=== PATIENT | male | born 1970 | race Caucasian/White ===

== ENCOUNTER 2021-06-05 16:36 | Outpatient (CLI) | payer OTHER, SELFPAY ==
--- NOTE | ~2021-06-05 | XR_ITS ---
EXAMINATION: XR chest 2V DATE: 06/05/2021 18:49 INDICATION: Hoarseness and cough. TECHNIQUE: Frontal and lateral views of the chest were obtained. COMPARISON: Chest 2 views 02/22/2014, CT abdomen and pelvis 01/21/2010 FINDINGS: There is mild scarring at the lung apices. Calcified bilateral pulmonary nodules and calcif ied hilar lymph nodes are consistent with old granulomatous disease. No pleural effusion or pneumotho rax. The heart size is normal. There is mild chronic height loss of multiple thoracic vertebral christina s. IMPRESSION: 1. Stable mild scarring at the lung apices. Reviewed, dictated and finalized at location A.
== END 2021-06-05 16:37 | disposition home or self-care (01) ==
LOC: CHSIMG 16:40
PROVIDERS: PCP Internal Medicine; Visit Provider Internal Medicine
DX: R49.0 Dysphonia (principal); R05 Cough
CPT/HCPCS: 71046

== ENCOUNTER → 2021-07-09 03:14 | Outpatient (CLI) | payer OTHER, SELFPAY ==
[2021-07-09 19:14] LABS: SARS-CoV-2 RNA PCR Negative
== END ==
PROVIDERS: PCP Internal Medicine; Visit Provider Otolaryngology
DX: Z01.812 Encounter for preprocedural laboratory examination (principal); Z20.822 Contact with and (suspected) exposure to COVID-19
CPT/HCPCS: C9803; U0003; U0005

== ENCOUNTER 2021-07-09 08:53 | Outpatient (CLI) | payer OTHER, SELFPAY ==
--- NOTE | 2021-07-09 09:09 | ECG_ITS ---
Measurements Intervals [place] Rate: 77 P: 85 WV: 159 QRS: 80 QRSD: 91 T: 61 QT: 360 QTc: 409 Interpretive Statements SINUS RHYTHM POSSIBLE LEFT ATRIAL ENLARGEMENT PEAKED T WAVES- CONSIDER HYPERKALEMIA BASELINE ARTIFACT- I, III, AVL ABNORMAL ECG Electronically Signed On 07-09-2021 9:20:56 CDT by Kieran Nelson D.O.
== END 2021-07-09 08:54 | disposition home or self-care (01) ==
LOC: ANHSURGERY 08:58
PROVIDERS: PCP Internal Medicine; Visit Provider Otolaryngology
DX: Z01.810 Encounter for preprocedural cardiovascular examination (principal); F17.210 Nicotine dependence, cigarettes, uncomplicated
CPT/HCPCS: 93005

== ENCOUNTER 2021-07-12 01:08 | Day surgery (SDC) | payer OTHER, SELFPAY ==
[2021-07-08 16:43] VITALS: BMI 20.3
--- NOTE | 2021-07-10 16:39 | PM.IMHP ---
H&P: HPI History of Present Illness Date/Time: 07/10/21 16:39 Patient presents for planned surgical procedure no change in symptoms no change in history Chief Complaint: hoarse voice, left vocal cord lesion Review of Systems Constitutional: Constitutional: Denies fatigue, Denies fever(s) and Denies lethargy Eyes: Eyes: Denies blurry vision and Denies change in vision ENT: Reports as per HPI Cardiovascular: Cardiovascular: Denies chest pain Respiratory: Respiratory: Denies cough Endocrine: Endocrine: Denies fatigue Hematologic/Lymphatic: Hematologic/Lymphatic: Denies easy bleeding, Denies easy bruising and Denies lymphadenopathy Allergic/Immunologic: Allergic/Immunologic: Denies seasonal rhinorrhea [facility] Social History Social History Smoking packs per day: 1 Smoking cigarettes per day: 20.0 Years smoked: 30 Smoking pack-years: 30.00 Smoking status: Current every day smoker Tobacco type: cigarettes Second hand tobacco smoke exposure: Yes Alcohol intake: current Drinks per week: 14 Alcohol use details: 2 beers per day Substance use: never Substance use type: does not use Spiritual care concerns: No Meds Home Medications and Allergies Home Medications Medication Instructions Recorded Confirmed Type prednisolone acetate 1 % eye 1 drp LEFT EYE DAILY 06/19/21 07/08/21 History drops,suspension titaiufkjuxd-nxy-fkcn-FA-vit K 1 tablet PO DAILY 07/08/21 07/08/21 History [Adults Multivitamin] Allergies Allergy/AdvReac Type Severity Reaction Status Date / Time Penicillins Allergy Intermediate Hives Verified 07/08/21 16:39 Exam Const: General: cooperative, healthy appearing, comfortable, well developed and alert HENMT: Head: normal to inspection, normocephalic and atraumatic Ears: hearing grossly normal bilaterally, external ears normal, TM's normal bilaterally and EAC's normal General nose exam: Normal external nose present, Normal nares present, No nasal polyps present, Normal nasal mucous membranes and turbinates present and Normal septum present Face and sinus: normal facial exam Mouth: Yes Normal oral and palatal mucosa present, Yes lip normal, Yes tongue normal, Yes oropharynx normal and Yes moist mucous membranes Teeth and gingiva: dentition normal and gingiva normal Throat: posterior oropharynx normal, tonsils normal and uvula midline Eyes: General: appearance normal, both eyes and all related structures Periorbital: periorbital findings normal Eyelids: eyelids normal Conjunctivae: conjunctivae normal Sclera: sclerae normal Neck: Neck: normal visual inspection, full ROM and no lymphadenopathy Thyroid: thyroid normal Lymphatic: no lymphadenopathy noted Resp: Effort & Inspection: normal respiratory effort and able to speak in complete sentences Cardio: Jugular venous distension: no JVD Neuro: Cranial nerves: Yes CN's II-XII intact bilaterally Assessment and Plan Assessment and plan (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 Risks were discussed including bleeding infection damage to surrounding structures need for further procedures need for repeat biopsy insufficient diagnosis. Patient voiced understanding of these risks and agreed. Total operative time approximately 10 minutes. (2) Hoarseness: Code(s): R49.0 - Dysphonia Status: Acute
--- NOTE | 2021-07-12 07:06 | WPDHPUPDATE1 ---
History and Physical Update Update Date/Time: 07/12/21 07:06 History and Physical has been reviewed, including an updated exam of the patient. There are NO changes in the patient's condition. Risks, benefits, and alternatives have been discussed and questions answered. Patient agrees to proceed with procedure.
[2021-07-12] MEDS: LACTATED RINGERS 1,000 ML 30 ML IV CONT (10:15)
[2021-07-12 10:38] VITALS: BP 103/67; PULSE 71; RESP 16; TEMP 36.3; O2SAT 100
--- NOTE | 2021-07-12 12:00 | WPDANESEPPF ---
Anes - Initial Pre Proc Eval Procedure: Operation Date: 07/12/21 12:30 Proposed Procedures p Microlaryngoscopy with Biopsy - Jaylan Contreras MD Date/Time: 07/12/21 12:00 Surgeon: Jaylan Contreras MD Pre Op Diagnosis: dysphonia Patient Data Age: 51 Gender: M Height: 1.83 m Weight: 64.65 kg Last Vital Signs Temp 36.3 C L 07/12/21 10:38 Pulse 71 07/12/21 10:38 Resp 16 07/12/21 10:38 BP 103/67 07/12/21 10:38 Pulse Ox 100 07/12/21 10:38 Allergies Allergy/AdvReac Type Severity Reaction Status Date / Time Penicillins Allergy Intermediate Hives Verified 07/12/21 10:35 Home Medications Medication Instructions Recorded Confirmed Type prednisolone acetate 1 % eye 1 drp LEFT EYE DAILY 06/19/21 07/12/21 History drops,suspension pnrveoketgky-jhi-stds-FA-vit K 1 tablet PO DAILY 07/08/21 07/12/21 History [Adults Multivitamin] Patient hx anesthesia problems: none Family hx anesthesia problems: none Results Review: All pre-operative results and documents have been reviewed as part of the pre-operative evaluation. [facility] Social History Social History Smoking packs per day: 1 Smoking cigarettes per day: 20.0 Years smoked: 30 Smoking pack-years: 30.00 Smoking status: Current every day smoker Tobacco type: cigarettes Second hand tobacco smoke exposure: Yes Alcohol intake: current Drinks per week: 14 Alcohol use details: 2 beers per day Substance use: never Substance use type: does not use Living arrangements: alone Spiritual care concerns: No Anes - Eval Final PreProcedure Day of Procedure 07/12/21 12:00 Patient weight: normal Heart: regular rate and rhythm Lungs: decreased breath sounds Airway: Mallampati scale class II Neurological: alert and oriented Last oral intake: >/= 8 hours ASA classification: III Emergent: no Anesthetic plan: proceed Anesthesia type and monitoring: general ETT and standard monitoring Results Review: All pre-operative results and documents have been reviewed as part of the pre-operative evaluation. Informed Consent: The patient's anesthetic plan and its attendant risks and benefits were discussed with the patient/family/POA. Questions were solicited and answers provided to the satisfaction of the patient/family/POA.
[2021-07-12] MEDS: OXYMETAZOLINE HCL 0.05% NAS 15 ML BTL (*BKC) 1 SPRAY NASAL (13:17)
[2021-07-12 13:40] VITALS: BP 92/54; PULSE 84; RESP 14; TEMP 37; O2SAT 99
[2021-07-12 13:55] VITALS: BP 95/56; PULSE 74; RESP 16; O2SAT 95
--- NOTE | 2021-07-12 14:14 | W.PM.PROC2 ---
Procedure Note - Detailed Date of Procedure 07/12/21 Pre-op Diagnosis dysphonia, left vocal cord lesion Post-op Diagnosis same Procedure Performed Direct laryngoscopy with biopsy of left vocal cord Surgeon Jaylan Contreras MD Anesthesia general Indications See above Findings Vastly improved left vocal cord leukoplakia no present were throat plicae a small area on the left cord posteriorly superiorly biopsied did not appear sinister or malignant Description of Procedure Patient correctly identified consent verified in the preoperative holding area. The patient was then brought to the operating room and a time-out was performed. General anesthesia was induced and endotracheal tube was secured the patient's airway using glide scope. The bed was then turned. The patient was then prepped and draped for the aforementioned procedure. Second time-out performed. Maxillary tooth mouth guard placed. [employer] laryngoscope placed in the airway and the vocal cords were brought into view. The aforementioned findings were noted. Overall the appearance was much improved and there were no sinister appearing lesions located. There was a small area several mm across on the left posterior superior cord that was biopsied. Bleeding was minimal if any and an Afrin-soaked pledget was placed over this for 2 minutes and then removed. No further bleeding was noted. The laryngoscope as well as maxillary tooth mouth guard removed. This was done using a 0 degree endoscope. Total blood loss 0 cc. I performed all dictated portions of the procedure. Care the patient was turned over to Anesthesiology. There were no immediate complications. Estimated Blood Loss 0 Drains No Packing No Pathology yes Complications No immediate complications Condition stable Disposition PACU
[2021-07-12 14:15] VITALS: BP 90/57; PULSE 64; RESP 16; O2SAT 97
[2021-07-12 14:25] VITALS: BP 103/62; PULSE 65; RESP 16
== END 2021-07-12 14:46 | disposition home or self-care (01) ==
PROVIDERS: PCP Internal Medicine; Visit Provider Otolaryngology
PROC: 0CJS8ZZ Inspection of Larynx, Via Natural or Artificial Opening Endoscopic (ICD-10-PCS; CPT 31575; principal; 2021-07-12 12:30)
DX: R49.0 Dysphonia (principal); J38.2 Nodules of vocal cords; F17.210 Nicotine dependence, cigarettes, uncomplicated
CPT/HCPCS: 31535; 88305; 93005; A9270; C9803; J0330; J1100; J2405; J2704; J7120; U0003; U0005

== ENCOUNTER 2022-09-18 07:15 | Outpatient (CLI) | payer OTHER, SELFPAY ==
--- NOTE | ~2022-09-18 | CT_ITS ---
Clinical Indication: Pulmonary nodules CT Scan of the Chest with Contrast: Technique: Contiguous sections were acquired throughout the chest after intravenous administration of 75 cc of Omnipaque 350. Dose reduction technique was used on this scan by utilizing automated exposu re control and iterative reconstruction technique. The dose-length product (DLP) was 162.99 mGy-cm. Findings: There is no evidence of any significant mediastinal, hilar or axillary lymphadenopathy. There is no f illing defect in the pulmonary arterial tree to suggest pulmonary embolus. There is no evidence of ao rtic dissection or aneurysm. There is no evidence of pleural or pericardial effusion. There is a 6 mm noncalcified nodule in the right lower lobe (series 4 image 103). There is an additio nal 4 mm noncalcified right lower lobe pulmonary nodule (series 4 image 83). There is a 6 mm noncalci fied nodule in the lingula (series 4 image 107). Calcified right basilar granuloma noted. There is li near left basilar scarring. Mild emphysema noted. Images through the upper abdomen reveal no abnormalities. Impression: 6 mm and 4 mm noncalcified right lower lobe pulmonary nodules, as detailed above. According to Fleisc hner Society criteria, for a low-risk patient, follow-up CT scan at 3-6 months advised, then consider additional 18-[address] scan. For a high-risk patient, follow-up CT scans at 3 have in 6 months an d 1824 months are recommended. Mild emphysema. Reviewed, dictated and finalized at location [] [employer] Impression: 6 mm and 4 mm noncalcified right lower lobe pulmonary nodules, as detailed abov e. According to Fleischner Society criteria, for a low-risk patient, follow-up CT scan at 3-6 months advised, then consider additional 18-[address] scan. Fo r a high-risk patient, follow-up CT scans at 3 have in 6 months and 1824 months are recommended. Mild emphysema.
== END 2022-09-18 07:16 | disposition home or self-care (01) ==
LOC: CHSIMG 07:19
PROVIDERS: PCP Internal Medicine; Visit Provider Internal Medicine
DX: R91.1 Solitary pulmonary nodule (principal)
CPT/HCPCS: 71260; Q9967

== ENCOUNTER 2023-04-29 07:07 | Outpatient (CLI) | payer OTHER, SELFPAY ==
[2023-04-29 07:34] LABS: Appearance Urine Clear (Clear); Basophils Absolute Auto 0.06 K/mm3 (0.00-0.10); Basophils Percent Auto 0.9 % (0.0-1.0); Bilirubin Urine Negative (Negative); Blood Urine Trace-Intact (Negative); Color Urine Light Yellow (Yellow); Eosinophils Absolute Auto 0.28 K/mm3 (0.02-0.50); Eosinophils Percent Auto 4.4 % (1.0-6.0); Glucose Urine UA Negative (Negative); Hematocrit 45.7 % (40.0-54.0); Hemoglobin 15.7 g/dL (14.0-18.0); Immature Granulocyte Absolute 0.03 K/mm3 (0.00-0.00); Immature Granulocyte Percent A 0.5 % (0.0-0.0); Ketones Urine Negative (Negative); Leukocyte Esterase Ur Negative (Negative); Lymphocytes Absolute Auto 1.65 K/mm3 (1.10-4.50); Lymphocytes Percent Auto 26.1 % (18.0-42.0); Mean Corpuscular HGB Conc 34.4 g/dL (32.0-36.0); Mean Corpuscular Volume 93.3 fL (78.0-102.0); Mean Platelet Volume 9.5 fl (8.7-11.0); Monocytes Absolute Auto 0.54 K/mm3 (0.10-0.90); Monocytes Percent Auto 8.5 % (2.0-11.0); Neutrophils Absolute Auto 3.8 K/mm3 (1.7-7.2); Neutrophils Percent Auto 59.6 % (50.0-70.0); Nitrate Urine Negative (Negative); Platelet Count Result 262 K/mm3 (150-420); Protein Urine Negative (Negative); Red Cell Distribution Width 13.9 % (11.6-14.4); Urobilinogen Urine 0.2 mg/dL (0.2-1.0); White Blood Count 6.3 K/mm3 (4.8-10.8)
[2023-04-29 07:41] LABS: Add Urine Microscopic? YES; RBC Urine 0-2 /hpf (0-2)
[2023-04-29 07:42] LABS: Bacteria Urine Trace /hpf; Squamous Epithelial Cell Urine Few /hpf (Few); WBC Urine None seen /hpf (0-3)
[2023-04-29 08:51] LABS: Alanine Aminotransferase 29 U/L (16-63); Albumin Level 3.5 g/dL (3.4-5.0); Alkaline Phosphatase 94 U/L (46-116); Anion Gap 8 mmol/L (8-16); Aspartate Amino Transferase 16 U/L (15-37); Bilirubin,Total 0.4 mg/dL (0.00-1.00); Blood Urea Nitrogen 17 mg/dL (7-18); Calcium 8.6 mg/dL (8.5-10.1); Carbon Dioxide 27 mmol/L (21-32); Chloride 105 mmol/L (98-108); Cholesterol 174 mg/dL (0-200); Estimated Glomerular Filt Rate > 60; Glucose 102 mg/dL (70-99); HDL Direct 52 mg/dL (40-60); LDL Cholesterol Calculated 114 mg/dL (<130); Osmolality Calculated 291 mOsm/kg (285-295); Potassium 4.5 mmol/L (3.5-5.1); Prostate Specific Antigen 1.2 ng/mL (< OR = 4.0); Sodium 140 mmol/L (136-145); Thyroid Stimulating Hormone 2.07 uIU/mL (0.36-3.74); Total Protein 6.5 g/dL (6.4-8.2); Triglycerides 41 mg/dL (0-150)
== END 2023-04-29 07:08 | disposition home or self-care (01) ==
LOC: CHSLAB 07:09
PROVIDERS: PCP Internal Medicine; Visit Provider Internal Medicine
DX: Z00.00 Encounter for general adult medical examination without abnormal findings (principal); J43.9 Emphysema, unspecified
CPT/HCPCS: 36415; 80053; 80061; 81001; 84153; 84443; 85025; G0103

== ENCOUNTER 2023-09-22 07:19 | Outpatient (CLI) | payer OTHER, SELFPAY ==
--- NOTE | ~2023-09-22 | CT_ITS ---
CT Scan of the Chest without Contrast: Clinical Indication: Lung cancer screening, personal history of nicotine dependence Technique: Contiguous sections were acquired throughout the chest without intravenous contrast. Dose reduction technique was used on this scan by utilizing automated exposure control and iterative recon struction technique. The dose-length product (DLP) was 83.99 mGy-cm. COMPARISON: 09/18/2022 Findings: There is no evidence of any significant mediastinal, hilar or axillary lymphadenopathy. Small calcifi ed mediastinal lymph nodes are present. The mediastinal soft tissues appear normal. There is no evidence of pleural or pericardial effusion. There is biapical scarring. There is mild to moderate emphysema. Stable 2-3 mm peripheral right upper lobe pulmonary nodule noted. Calcified right basilar granuloma present. Stable 5 mm noncalcified rig ht lower lobe pulmonary nodule (axial image 94). Stable additional 4 mm right lower lobe pulmonary no dule (axial image 77). Images through the upper abdomen reveal no abnormalities. Impression: Lung RADS 2: Benign appearance. 12 month follow-up screening CT advised. Mild to moderate emphysema. Reviewed, dictated and finalized at location . [facility] Impression: Lung RADS 2: Benign appearance. 12 month follow-up screening CT advised. Mild to moderate emphysema.
== END 2023-09-22 07:20 | disposition home or self-care (01) ==
LOC: CHSIMG 07:20
PROVIDERS: PCP Internal Medicine; Visit Provider Nurse Practitioner Family
DX: Z12.2 Encounter for screening for malignant neoplasm of respiratory organs (principal); Z87.891 Personal history of nicotine dependence; J43.9 Emphysema, unspecified
CPT/HCPCS: 71271

== ENCOUNTER 2024-08-18 07:10 | Outpatient (CLI) | payer OTHER, SELFPAY ==
[2024-08-18 07:28] LABS: Add Urine Microscopic? NO; Appearance Urine Clear (Clear); Basophils Absolute Auto 0.05 K/mm3 (0.00-0.10); Basophils Percent Auto 0.8 % (0.0-1.0); Bilirubin Urine Negative (Negative); Blood Urine Negative (Negative); Color Urine Light Yellow (Yellow); Eosinophils Absolute Auto 0.15 K/mm3 (0.02-0.50); Eosinophils Percent Auto 2.4 % (1.0-6.0); Glucose Urine UA Negative (Negative); Hematocrit 47.1 % (40.0-54.0); Hemoglobin 16.4 g/dL (14.0-18.0); Immature Granulocyte Absolute 0.03 K/mm3 (0.00-0.00); Immature Granulocyte Percent A 0.5 % (0.0-0.0); Ketones Urine Negative (Negative); Leukocyte Esterase Ur Negative (Negative); Lymphocytes Percent Auto 27.2 % (18.0-42.0); Mean Corpuscular HGB Conc 34.8 g/dL (32-36); Mean Corpuscular Hemoglobin 32.1 pg (27.0-31.0); Mean Corpuscular Volume 92.2 fL (78.0-102.0); Mean Platelet Volume 9.1 fl (8.7-11.0); Monocytes Absolute Auto 0.57 K/mm3 (0.10-0.90); Monocytes Percent Auto 9.1 % (2.0-11.0); Neutrophils Absolute Auto 3.74 K/mm3 (1.70-7.20); Nitrate Urine Negative (Negative); Platelet Count Result 263 K/mm3 (150-420); Protein Urine Negative (Negative); Red Blood Count 5.11 M/mm3 (4.70-6.10); Red Cell Distribution Width 13.3 % (11.6-14.4); Specific Grav Ur <= 1.005 (1.010-1.020); Urobilinogen Urine 0.2 mg/dL (0.2-1.0); White Blood Count 6.2 K/mm3 (4.8-10.8)
[2024-08-18 08:31] LABS: Alanine Aminotransferase 21 U/L (16-63); Albumin Level 3.8 g/dL (3.4-5.0); Alkaline Phosphatase 100 U/L (46-116); Anion Gap 10 mmol/L (4-12); Aspartate Amino Transferase 16 U/L (15-37); Bilirubin,Total 0.6 mg/dL (0.00-1.00); Blood Urea Nitrogen 15 mg/dL (7-18); Calcium 9.3 mg/dL (8.5-10.1); Carbon Dioxide 27 mmol/L (21-32); Chloride 103 mmol/L (98-108); Cholesterol 188 mg/dL (0-200); Estimated Glomerular Filt Rate > 60; Glucose 102 mg/dL (70-99); HDL Direct 57 mg/dL (40-60); LDL Cholesterol Calculated 124 mg/dL (<130); Osmolality Calculated 290 mOsm/kg (285-295); Potassium 4.6 mmol/L (3.5-5.1); Prostate Specific Antigen 1.5 ng/mL (< OR = 4.0); Sodium 140 mmol/L (136-145); Thyroid Stimulating Hormone 2.72 uIU/mL (0.36-3.74); Total Protein 6.8 g/dL (6.4-8.2); Triglycerides 37 mg/dL (0-150)
[2024-08-18 08:50] LABS: CRP < 0.5 mg/dL (0.0-0.9)
[2024-08-19 08:58] LABS: LH 4.6 mIU/mL (1.5-9.3)
== END 2024-08-18 07:11 | disposition home or self-care (01) ==
LOC: CHSLAB 07:12
PROVIDERS: PCP Internal Medicine; Visit Provider Internal Medicine
DX: N52.9 Male erectile dysfunction, unspecified (principal)
CPT/HCPCS: 36415; 80053; 80061; 81003; 83002; 84153; 84402; 84403; 84443; 85025; 86140; G0103

== ENCOUNTER 2024-10-13 07:32 | Outpatient (CLI) | payer BC, SELFPAY ==
--- NOTE | ~2024-10-13 | CT_ITS ---
EXAMINATION:CT lung screening DATE: 10/13/2024 08:10 INDICATION: Tobacco use. Current smoker. TECHNIQUE: Computed tomography (CT) of the chest was performed without intravenous contrast. Automate d exposure control and iterative reconstruction technique were employed. The dose-length product (DLP ) was 80.25 mGy-cm. COMPARISON: Chest CT 09/22/2023 FINDINGS: There is mild emphysema. There is mild scarring at the lung apices. There are a few chronic nodules in the lungs measuring up to 6 mm in right lower lobe. A calcified right lung nodule and bj cified right hilar and mediastinal lymph nodes are consistent with old granulomatous disease. No pleu ral effusion. There are nodules in the thyroid measuring up to 13 mm, likely not clinically significa nt. The heart size is normal. No pericardial effusion. There are coronary artery calcifications. Ther e is mild chronic anterior wedging of multiple vertebral bodies. There is mild thoracic spondylosis. IMPRESSION: 1. Lung-RADS category 2: Benign appearance or behavior. Continue annual screening with noncontrast lo w-dose chest CT in 12 months. Reviewed, dictated and finalized at location A. ENT ARCHITECT IMPRESSION: 1. Lung-RADS category 2: Benign appearance or behavior. Continue annual screeni ng with noncontrast low-dose chest CT in 12 months.
== END 2024-10-13 07:33 | disposition home or self-care (01) ==
LOC: CHSIMG 07:34
PROVIDERS: PCP Internal Medicine; Visit Provider Nurse Practitioner Family
DX: Z12.2 Encounter for screening for malignant neoplasm of respiratory organs (principal); Z87.891 Personal history of nicotine dependence
CPT/HCPCS: 71271